=== PATIENT | female | born 1940 | race Caucasian/White ===

== ENCOUNTER 2018-03-22 09:20 | Inpatient (IN) | payer MEDICARE, OTHER ==
[~2018-03-22] VITALS: Ht 160 cm; Wt 80.3 kg
[~2018-03-22 09:20] MED LIST: ADULT LOW DOSE81 MG PO; ALENDRONATE SOD70 MG PO; AMBIEN 5 MG TABL5 M1 PO; AMITRIPTYLINE H10 M1 PO; AMITRIPTYLINE H25 M4 PO; APAP500 PO; ARICEPT10 MG PO; B-121000 MC2 PO; BISACODYL SUPP10 MG RECTAL; BUDEPRION SR150 MG PO; BUTALB-ACETAMI1 EAC2 PO; BUTALB-APAP-CA1 EACH PO; CALCARB 600 W-1 EACH PO; CALCIUM 500 +1 EAC5 PO; CALCIUM 600 +1 EAC1 PO; CARDURA4 MG PO; CIPRO500 MG PO; CLARITIN10 MG PO; CLONAZEPAM 0.50.5 M1 PO; CLONAZEPAM PO; DIOVAN 80 MG TA80 M1 PO; DIOVAN HCT 1601 EACH PO; ENDOCET 7.5-321 EACH PO; EXELON PO; EXELON1.5 MG PO; FLEXERIL PO; FLOMAX0.4 MG PO; FLONASE 0.05%50 MCG NASAL; FLONASE 0.05%50 MCG NS; FOSAMAX 70 MG T70 MG PO; FREEZE IT RE113.4 GM TP; FUROSEMIDE; HYDROCODON-ACE1 EAC5 PO; HYDROCODON-ACE1 EAC7 PO; LASIX 20 MG TAB20 MG PO; LASIX 40 MG TAB40 M2 PO; LEVOTHYROXIN0.025 MG PO; LIORESAL 10 MG10 MG PO; LOPERAMIDE 2 MG2 M1 PO; METHADONE HCL 110 M1 PO; MIRAPEX1.5 MG PO; NAMENDA 10 MG T10 MG PO; NAMENDA XR28 MG PO; NEURONTIN 300300 M1 PO; NEURONTIN 300M300 M1 PO; NEURONTIN 300M300 M2 PO; NEURONTIN600 MG PO; NORCO 10-325 T1 EACH PO; NORTRIPTYLINE H25 M3 GT; NORTRIPTYLINE H25 M3 PO; NORTRIPTYLINE H50 M3 GT; OCUVITE EYE +1 EACH PO; OCUVITE TABLET1 EAC1 PO; PAROXETINE HCL20 MG PO; PRILOSEC20 MG PO; PRIMIDONE50 MG PO; PROTONIX40 M1 PO; PULMICORT0.5 MG/22 INH; ROZEREM 8 MG TAB8 M1 PO; SINEMET 25-1001 EAC1 PO; SINEMET CR 25-1 EACH PO; STALEVO 150 TA1 EACH PO; STALEVO 200 TA1 EACH PO; TEGRETOL XR100 MG PO; TEGRETOL XR200 MG PO; TEGRETOL XR400 MG PO; TRAMADOL 50 MG50 MG PO; VESICARE 5 MG TA5 M1 PO; VESICARE 5 MG TA5 MG PO; VIACTIV SOFT C1 EACH PO; VITAMIN B-12500 MCG PO; WELLBUTRIN 75 M75 M1 PO; WELLBUTRIN SR150 M1 PO; [UNRECOGNIZED DRUG - OTHER] PO
[2018-03-22 09:29] VITALS: BP 152/77
[2018-03-22] MEDS ORDERED: OCUVITE ADULT1 EAC1 PO (09:44)
[2018-03-22] MEDS ORDERED: ARTIFICIAL TEA1 EACH OPHTHALMIC (09:45)
[2018-03-22] MEDS ORDERED: CLONIDINE0.1 PO (09:45)
[2018-03-22] MEDS ORDERED: RYTARY ER 48.71 EACH PO ×5 (09:45→15:26)
[2018-03-22] MEDS ORDERED: SENNA8.6 MG PO (09:45)
[2018-03-22] MEDS ORDERED: ASPERCREME1 EACH TOP (09:46)
[2018-03-22] MEDS ORDERED: FLECTOR PATCH1 EA TOP (09:46)
[2018-03-22 10:14] LABS: HEMATOCRIT 38.2 % (37.0-47.0); HEMOGLOBIN 13.3 gm/dL (12.0-15.0); MCH 32.4 pg (26.0-34.0); MCHC 34.7 g/dL (28.0-37.0); MCV 93.5 fL (80.0-100.0); MPV 8.1 fl. (7.2-11.1); NUCLEATED RBCS 0 /100WBC; PLATELET COUNT* 212 thou/uL (150-400); RBC 4.08 mil/uL (4.20-5.00); RDW-CV 13.5 % (10.5-14.5); WBC 10.6 thou/uL (4.0-11.0)
[2018-03-22 10:21] LABS: CALCIUM 8.3 mg/dL (8.5-10.1); CREATININE 0.7 mg/dL (0.6-1.3); POTASSIUM 3.7 mmol/L (3.5-5.1)
[2018-03-22 10:26] LABS: ALBUMIN 3.5 g/dL (3.4-5.0); TOTAL BILIRUBIN 0.6 mg/dL (<0.1-1.0)
[2018-03-22 10:34] LABS: ABSOLUTE EOSINOPHILS 0.1 thou/uL (0.0-0.7); ABSOLUTE MONOCYTES 0.1 thou/uL (0.0-1.2); ABSOLUTE NEUTROPHILS 5.4 thou/uL (1.6-8.1); PLATELET ESTIMATE ADEQUATE
[2018-03-22 11:32] LABS: URINE BILIRUBIN NEGATIVE (Negative); URINE BLOOD NEGATIVE (Negative); URINE CLARITY CLEAR; URINE COLOR YELLOW; URINE GLUCOSE-RANDOM NEGATIVE (Negative); URINE KETONES TRACE (Negative); URINE LEUKOCYTES-REFLEX NEGATIVE (Negative); URINE NITRITE-REFLEX NEGATIVE (Negative); URINE PROTEIN NEGATIVE (Negative); URINE SPECIFIC GRAVITY <= 1.005 (1.005-1.030); URINE UROBILINOGEN 0.2 E.U./dl (0.2-1.0)
[2018-03-22 11:45] VITALS: BP 168/85
[2018-03-22 11:55] VITALS: BP 166/78
--- NOTE | 2018-03-22 14:02 | EKG ---
[place] [address] ELECTROCARDIOGRAM REPORT Name: ADOLFO DICKINSON Room: [address] ADM IN .R.#: [id number] Admission: 03/22/18 Attend Phys: Denae Lopez MD Discharge: Date of : 44 Report #: [id number] THIS REPORT FOR: //name// [facility] ED Test Date: 2018-03-22 Test Time: 10:10:20 Pat Name: ADOLFO DICKINSON Department: Room: [facility] Gender: F [employer] Team Member: Emili ALCOCER : 1940 Requested By: Elsy Britton Order Number: [id number] MD: Greyson Tena Measurements Intervals [place] Rate: 63 P: -6 TX: 188 QRS: -15 QRSD: 107 T: 8 QT: 469 QTc: 481 Interpretive Statements Sinus rhythm Abnormal R-wave progression, early transition Probable left ventricular hypertrophy Compared to ECG 11/13/2016 12:39:48 Sinus arrhythmia no longer present Atrial abnormality no longer present Electronically Signed On 03-22-2018 14:02:01 CDT by Greyson Tena [email or web address] <ELECTRONICALLY SIGNED> By: Greyson Tena MD, FACC 03/22/18 1402 1010 1010 Greyson Tena MD, [facility] /EPI
[2018-03-22] MEDS ORDERED: TYLENOL325 MG PO (15:13)
[2018-03-22] MEDS ORDERED: MIRALAX17 GM PO (15:20)
[2018-03-22] MEDS ORDERED: NEURONTIN 300300 M1 PO (15:23)
[2018-03-22] MEDS ORDERED: TYLENOL EXTRA500 MG PO (15:26)
[2018-03-22] MEDS ORDERED: MYLANTA PO (15:29)
[2018-03-22] MEDS ORDERED: NORCO 10-325 T1 EACH PO (15:29)
[2018-03-22] MEDS ORDERED: PERCOCET 5-3251 EACH PO (15:30)
[2018-03-22] MEDS ORDERED: DESMOPRESSIN A0.2 M2 PO (15:30)
[2018-03-22 16:12] VITALS: BP 167/94
[2018-03-22 16:17] LABS: CALCIUM 8.6 mg/dL (8.5-10.1); CREATININE 0.8 mg/dL (0.6-1.3); POTASSIUM 3.5 mmol/L (3.5-5.1)
--- NOTE | 2018-03-22 16:29 | NUR ---
PATIENT ADMITTED TO ROOM 305 FROM ER. SON AT BEDSIDE AND VERY SUPPORTIVE TO PATIENT NEEDS. ALERT AND ORIENTED X 4. TREMORS NOTED. IVF INFUSING AT TIME OF ADMISSION. DR. ABARCA NOTIFIED OF UPDATE HOME MED LIST, DNR STATUS (ORDER OBTAINED), AND CT RESULTS. AWAITING ANY NEW ORDERS. PATIENT TURNED Q2. HEELS ELEVATED. BMP DRAWN THIS EVENING, ORDERS WERE TO PRIOR DC NS. DR. ABARCA NOTIFIED THAT NEW NA LEVEL WAS 121, NO NEW ORDERS RECEIVED AT THIS TIME. FALL RISK PROTOCOL IN PLACE. ORIENTED TO CALL LIGHT. CALL LIGHT WITHIN REACH, WILL CONTINUE TO MONITOR.
[2018-03-22 19:45] VITALS: BP 174/80
[2018-03-22 20:40] LABS: CALCIUM 8.5 mg/dL (8.5-10.1); CREATININE 0.8 mg/dL (0.6-1.3); POTASSIUM 3.5 mmol/L (3.5-5.1)
[2018-03-23] VITALS: BP 100/78
[2018-03-23 04:00] VITALS: BP 154/67
[2018-03-23 04:49] LABS: HEMATOCRIT 42.6 % (37.0-47.0); HEMOGLOBIN 14.1 gm/dL (12.0-15.0); MCH 31.6 pg (26.0-34.0); MCHC 33.1 g/dL (28.0-37.0); MCV 95.5 fL (80.0-100.0); MPV 8.6 fl. (7.2-11.1); RBC 4.46 mil/uL (4.20-5.00); RDW-CV 13.7 % (10.5-14.5); WBC 12.8 thou/uL (4.0-11.0)
[2018-03-23 05:32] LABS: ALBUMIN 3.7 g/dL (3.4-5.0); CALCIUM 8.5 mg/dL (8.5-10.1); CREATININE 0.8 mg/dL (0.6-1.3); POTASSIUM 3.9 mmol/L (3.5-5.1); TOTAL BILIRUBIN 0.5 mg/dL (<0.1-1.0); TOTAL PROTEIN 6.1 g/dL (6.4-8.2)
--- NOTE | 2018-03-23 06:39 | NUR ---
PT SLEPT OFF AND ON OVERNIGHT. VERY LONE [place] WITHOUT HEARING AID AND COCHLEAR IMPLANT ON. USING NOTEPAD TO COMMUNICATE AT TIMES. PT TURNED AND REPOSITIONED Q2 HOURS AND PRN FOR SKIN CARE AND COMFORT PT WOULD ALLOW. RLEG ELEVATED ON PILLOW. NEW IV LWRIST IVF INFUSING PER PUMP. USING BEDPAN OVERNIGHT TO VOID SEVERAL TIMES. CO R LEG PAIN, HYDROCODONE GIVEN PRN. SCDS ON. AM LABS DRAWN. DNR. ABLE TO USE CALL LITE AND MAKE NEEDS KNOWN. TREMORS DUE TO PARKINSONS. TELE SR. AO X4, FORGETFUL. BED ALARM ON FOR SAFETY.
[2018-03-23 08:00] VITALS: BP 138/59
[2018-03-23 12:21] VITALS: BP 89/58
--- NOTE | 2018-03-23 14:16 | NUR ---
SW met with pt son to complete initial assessment, introduce self, and SW role. (Pt was on the commode at the time.) Pt lives at [facility] and has a U Step walker and a wc. Pt has HH through the facility 3 times a week and also uses the stationary bike for exercising. Pt has hx of [place] at [facility]. Pt son does not anticipate any dc needs at this time. SW to continue to follow.
[2018-03-23 15:45] VITALS: BP 111/52
--- NOTE | 2018-03-23 18:33 | NUR ---
XRAY RIGHT HIP, NO FX NOTED. STEVE MEDS AND CARES WELL, COMPLIANT W/ PLAN OF CARE, SON AT BEDSIDE MOST OF THIS SHIFT, TURNED FREQUENTLY, UP TO CHAIR FOR MEALS, BSC FOR BOWEL/BLADDER, NS D/C'D, WELLBUTRIN D/C'D, VOICES NEEDS APPROP, CONT POC.
[2018-03-23 19:30] VITALS: BP 119/74
[2018-03-23 19:44] LABS: CALCIUM 8.3 mg/dL (8.5-10.1); CREATININE 0.8 mg/dL (0.6-1.3); POTASSIUM 4.5 mmol/L (3.5-5.1)
[2018-03-24 00:40] VITALS: BP 124/61
[2018-03-24 04:00] VITALS: BP 122/60
[2018-03-24 05:01] LABS: HEMOGLOBIN 13.5 gm/dL (12.0-15.0); MCH 31.7 pg (26.0-34.0); MCHC 32.9 g/dL (28.0-37.0); MCV 96.2 fL (80.0-100.0); MPV 8.7 fl. (7.2-11.1); RBC 4.26 mil/uL (4.20-5.00); WBC 12.1 thou/uL (4.0-11.0)
[2018-03-24 06:01] LABS: ALBUMIN 3.5 g/dL (3.4-5.0); CALCIUM 8.6 mg/dL (8.5-10.1); CREATININE 0.8 mg/dL (0.6-1.3); MAGNESIUM 2.3 mg/dL (1.8-2.4); TOTAL BILIRUBIN 0.3 mg/dL (<0.1-1.0); TOTAL PROTEIN 5.9 g/dL (6.4-8.2)
--- NOTE | 2018-03-24 07:01 | NUR ---
VITALS WNL. SEE MAR. SEE CHARTING. FALL PRECAUTIONS IN PLACE. HOURLY ROUNDING FOR SAFETY.
[2018-03-24 09:00] VITALS: BP 94/55
--- NOTE | 2018-03-24 11:16 | NUR ---
ASSUMED PT CARE AT 0700 PT IS ALERT AND ORIENTED X 4 PT DENIES PAIN OR SOA ON RA PT HAS TREMORS D/T CHRONIC ILLNESS, PT IS UP WITH ASSIST X 1 PT IS A FALL RISK CHAIR ALARM IS ON, PT IS SR ON THE MONITOR, PT IS HARD OF HEARING HAS HEARING AIDS CHOCLEAR IMPLANT AND CAN READ LIPS, WILL CONTINUE TO MONITOR
[2018-03-24 15:58] VITALS: BP 114/44
[2018-03-24 22:00] VITALS: BP 127/71
[2018-03-25 00:40] VITALS: BP 153/71
[2018-03-25 04:56] LABS: HEMATOCRIT 40.4 % (37.0-47.0); HEMOGLOBIN 13.4 gm/dL (12.0-15.0); MCH 31.8 pg (26.0-34.0); MCHC 33.2 g/dL (28.0-37.0); MCV 95.8 fL (80.0-100.0); MPV 8.8 fl. (7.2-11.1); RBC 4.21 mil/uL (4.20-5.00); RDW-CV 14.1 % (10.5-14.5); WBC 13.3 thou/uL (4.0-11.0)
--- NOTE | 2018-03-25 04:58 | NUR ---
PATIENT ALERT AND ORIENTED X4. HARD OF HEARING. UP WITH STAND BY ASSIST. PAIN MEDICATION GIVEN X2 AND HELPFUL FOR RIGHT LEG PAIN. NO C/O N/V. HAS SHAKES FROM PARKINSONS WHILE AWAKE. MEDICATION GIVEN AND HELPFUL FOR PAIN. CALL LIGHT WITHIN REACH. BED ALARM ON.
[2018-03-25 05:31] LABS: ALBUMIN 3.3 g/dL (3.4-5.0); CALCIUM 8.3 mg/dL (8.5-10.1); CREATININE 0.8 mg/dL (0.6-1.3); MAGNESIUM 2.3 mg/dL (1.8-2.4); POTASSIUM 4.2 mmol/L (3.5-5.1); TOTAL BILIRUBIN 0.3 mg/dL (<0.1-1.0); TOTAL PROTEIN 5.9 g/dL (6.4-8.2)
--- NOTE | 2018-03-25 06:22 | NUR ---
REMAINS IN SINUS RHYTHM ON HEART MONITOR.
--- NOTE | 2018-03-25 07:40 | NUR ---
ASSUMED CARE OF PT, REPORT OBTAINED FROM GIRMA BEDLOLA. PT RESTING IN BED AT THIS TIME
[2018-03-25 09:30] VITALS: BP 153/71
[2018-03-25 16:16] VITALS: BP 133/61
--- NOTE | 2018-03-25 18:53 | NUR ---
PT VSS THIS SHIFT AND SR ON THE MONITOR. PT AOX4, LUNGS CTA-PT PUT ON 2LNC DUE TO SATS IN LOW 90'S FOR COMFORT. PT TOLERATING DIET, BUT HAS REDUCED APPETITE. PT ABLE TO GET UP TO COMMODE OR THE BATHROOM WITH ASSISTANCE OF 1 WITH GAIT BELT AND WALKER. PT HAS C/O PAIN THIS SHIFT IN RLE. DR RAWLS PLACED REHAB CONSULT ORDER. WILL CONTINUE TO MONITOR AND ASSESS
[2018-03-26] VITALS: BP 138/60
[2018-03-26 05:02] LABS: HEMATOCRIT 38.7 % (37.0-47.0); HEMOGLOBIN 12.9 gm/dL (12.0-15.0); MCH 32.3 pg (26.0-34.0); MCHC 33.4 g/dL (28.0-37.0); MCV 96.7 fL (80.0-100.0); MPV 8.7 fl. (7.2-11.1); RDW-CV 14.3 % (10.5-14.5); WBC 10.8 thou/uL (4.0-11.0)
[2018-03-26 05:12] LABS: CALCIUM 8.7 mg/dL (8.5-10.1); CREATININE 0.8 mg/dL (0.6-1.3); MAGNESIUM 2.2 mg/dL (1.8-2.4); POTASSIUM 3.8 mmol/L (3.5-5.1)
--- NOTE | 2018-03-26 06:12 | NUR ---
PATIENT SLEPT MOST OF THE NIGHT. IV REMAINS SALINE LOCKED. PATIENT WAS GIVEN PAIN MEDICINE ONCE THIS SHIFT. PATIENT IS POSSIBLE GOING TO REHAB TODAY. WILL CONTINUE TO MONITOR.
[2018-03-26 08:00] VITALS: BP 144/63
--- NOTE | 2018-03-26 11:30 | NUR ---
Possibility for pt to dc to [facility] in rehab unit today.
[2018-03-26 12:00] VITALS: BP 118/50; BP 120/68
--- NOTE | 2018-03-26 17:24 | NUR ---
RECEIVED CONSULT FOR POSSIBLE REHAB ADMISSION. CONSULT HAS BEEN ACKNOWLEDGED BY ROUGH RIB GRADER AND DR. KING. PATIENT ADMITTED WITH HYPONATREMIA AND EXACERBATION OF HER PARKINSONS. PATIENT EVALUATED BY PT/OT HAS DEFINATE REHAB NEEDS. SPOKE WITH PATIENT WHO IS AGREEABLE TO REHAB AND VOICES UNDERSTANDING OF QUALIFICATIONS AND EXPECTATIONS. SPOKE WITH CM, HUGH AND INFORMED OF ACCEPTANCE TO REHAB ONCE MEDICALLY STABLE, PATIENT SHOULD BE READY FOR DISCHARGE TO REHAB TOMORROW. THANK YOU FOR THIS CONSULT.
--- NOTE | 2018-03-26 19:42 | NUR ---
RESUMED CARE THIS AM, SEE ASSESSMENT FOR DETAILS, VSS, COMPLIANT W/ MEDS/CARES. UP W/ EXT ASSIST OF ONE, CONTINENT OF B/B. LABS RESOLVING, ORDERS RECEIVED FOR OT CONSULT, ANTICIPATE TRANSFER TO IN REHAB TOMORROW. FAMILY @ BEDSIDE MOST OF THIS SHIFT, PLAN OF CARE REVIEWED, NO QUESTIONS AT THIS TIME, CONT POC.
[2018-03-27] VITALS: BP 168/78
[2018-03-27 04:00] VITALS: BP 193/94
--- NOTE | 2018-03-27 06:04 | NUR ---
PT SLEPT OFF AND ON OVERNIGHT, UP WITH ASSIST TO BSC TO VOID. AOX4, [place]. NO LABS THIS MORNING.LWRIST SLIV. DNR. TAKES PILLS WHOLE WITH WATER. ANTICIPATING DISCHARGE TO REHAB TODAY. ABLE TO USE CALL LITE AND MAKE NEEDS KNOWN.
[2018-03-27 08:00] VITALS: BP 150/68
--- NOTE | 2018-03-27 10:05 | NUR ---
Pt to dc to inpt rehab today just pending final orders. SW called and spoke with pt son Jesus who is in agreement with plan and happy that pt will be able to go to inpt rehab here in the hospital. No other dc needs expressed at this time.
--- NOTE | 2018-03-27 11:17 | NUR ---
RESUMED CARE THIS AM, VSS, NO DISTRESS NOTED, DISCOMFORT TO R HIP 2/2 OA CONTROLLED WITH ORAL MEDICATION. ORDERS RECEIVED FOR TRANSFER TO IN REHAB, ROOM 326, FAMILY AND PATIENT INFORMED, IV ACCESS REMOVED W/O INCIDENT. PERSONAL EFFECTS GATHERED, ACCOUNTED FOR, IN COMPANY.
[2018-03-27 12:00] VITALS: BP 110/60
[2018-03-27] MEDS ORDERED: MIRAPEX1.5 MG PO (13:43)
[2018-03-27 13:53] VITALS: BP 110/60
== END 2018-03-27 14:58 | DRG 644 ==
LOC: M.ERS 09:20 → M.TBA-ER 10:45 → M.3W 10:45
PROVIDERS: Family Medicine; Personal Emergency Response Attendant; Psychiatry & Neurology Neurology; ADMIT Family Medicine
DX: E22.2 Syndrome of inappropriate secretion of antidiuretic hormone (principal); K57.92 Diverticulitis of intestine, part unspecified, without perforation or abscess without bleeding; T43.295A Adverse effect of other antidepressants, initial encounter; H91.93 Unspecified hearing loss, bilateral; G20 Parkinson's disease; I10 Essential (primary) hypertension; F32.9 Major depressive disorder, single episode, unspecified; K59.00 Constipation, unspecified; R39.15 Urgency of urination; F02.80 Dementia in other diseases classified elsewhere, unspecified severity, without behavioral disturbance, psychotic disturbance, mood disturbance, and anxiety; F41.9 Anxiety disorder, unspecified; Z87.81 Personal history of (healed) traumatic fracture; Z90.49 Acquired absence of other specified parts of digestive tract; Z90.710 Acquired absence of both cervix and uterus; Z79.82 Long term (current) use of aspirin; Z79.899 Other long term (current) drug therapy; Z88.2 Allergy status to sulfonamides; Z23 Encounter for immunization

== ENCOUNTER 2018-03-27 10:46 | Inpatient (IN) | payer MEDICARE, OTHER ==
[~2018-03-27] VITALS: Ht 160 cm; Wt 79.3 kg
--- NOTE | ~2018-03-27 | PLAN ---
[facility] [address] [place] [address] REHAB UNIT PLAN OF CARE Name: ADOLFO DICKINSON Room: [address] IN [facility].#: [id number] Admission: 03/27/18 Attend Phys: Emiliana Julien DO Discharge: Date of : 44 Report #: [id number] THIS REPORT FOR: //name// CC: Emiliana Julien Walt Rubi This is a 77-year-old female admitted to inpatient rehabilitation to facilitate safe discharge home, status post acute hospitalization at [facility] for increasing weakness, debility, alterations in activities of daily living. She does have known Parkinson's disease and did have an exacerbation of her symptoms during her hospital stay. She is requiring physical and occupational therapy, as well as speech and language pathology for [id number] cognitive deficits. Her previous level of function was modified independent with a cane and/or front-wheeled walker. Current level of function is [id number] assistance of 1-2 depending on therapy, activity, and time of day. She does have cognitive deficits with expression, cognition, and memory. Estimated length of stay is 12-14 days with discharge disposition to the home setting where she has accessible house and supportive family. MEDICAL PROGNOSIS: Good. REHABILITATION PROGNOSIS: Good. Physical therapy will see the patient 60-90 minutes per day, 5 days per week, working on upper and lower body strength, balance, coordination, navigation. Occupational therapy will work with the patient 60-90 minutes per day, 5 days per week, working on upper and lower body strength, balance, coordination, navigation, bathing, dressing, and toileting. Speech language pathology will work with the patient 30-90 minutes per day, 5 days per week, working on memory strategies, cognition, expression. This is an overall plan of care, may change from time to time, will team him weekly and make changes to plan of care as needed. By: [id number] Julien DO /felisa
[~2018-03-27 10:46] MED LIST changes: +ARTIFICIAL TEA1 EACH OPHTHALMIC; +ASPERCREME1 EACH TOP; +CLONIDINE0.1 PO; +DESMOPRESSIN A0.2 M2 PO; +FLECTOR PATCH1 EA TOP; +MIRALAX17 GM PO; +MYLANTA PO; +OCUVITE ADULT1 EAC1 PO; +PERCOCET 5-3251 EACH PO; +RYTARY ER 48.71 EACH PO; +SENNA8.6 MG PO; +TYLENOL EXTRA500 MG PO; +TYLENOL325 MG PO
[2018-03-27] MEDS ORDERED: MIRAPEX1.5 MG PO (13:43)
[2018-03-27 15:00] VITALS: BP 131/68
[2018-03-27 20:43] VITALS: BP 131/56
[2018-03-28 05:06] LABS: HEMATOCRIT 38.3 % (37.0-47.0); HEMOGLOBIN 12.8 gm/dL (12.0-15.0); MCH 32.5 pg (26.0-34.0); MCHC 33.4 g/dL (28.0-37.0); MCV 97.2 fL (80.0-100.0); MPV 8.3 fl. (7.2-11.1); RBC 3.94 mil/uL (4.20-5.00); RDW-CV 14.4 % (10.5-14.5); WBC 9.5 thou/uL (4.0-11.0)
[2018-03-28 05:24] LABS: CALCIUM 8.9 mg/dL (8.5-10.1); CREATININE 0.8 mg/dL (0.6-1.3); POTASSIUM 4.4 mmol/L (3.5-5.1)
[2018-03-28 08:00] VITALS: BP 195/80
[2018-03-28 20:14] VITALS: BP 114/61
[2018-03-29 08:19] VITALS: BP 161/87
[2018-03-29 20:40] VITALS: BP 124/42
[2018-03-30 07:50] VITALS: BP 151/69
[2018-03-30 20:01] VITALS: BP 110/51
[2018-03-31 08:00] VITALS: BP 141/56
[2018-03-31 19:21] VITALS: BP 127/57
[2018-04-01 07:57] VITALS: BP 139/85
[2018-04-01 20:00] VITALS: BP 130/65
[2018-04-02 08:29] VITALS: BP 148/55
[2018-04-02 19:51] VITALS: BP 134/67
[2018-04-03 03:53] LABS: HEMATOCRIT 37.9 % (37.0-47.0); HEMOGLOBIN 12.3 gm/dL (12.0-15.0); MCH 31.8 pg (26.0-34.0); MCHC 32.5 g/dL (28.0-37.0); MCV 97.9 fL (80.0-100.0); MPV 7.6 fl. (7.2-11.1); RBC 3.87 mil/uL (4.20-5.00); RDW-CV 14.5 % (10.5-14.5); WBC 8.4 thou/uL (4.0-11.0)
[2018-04-03 04:11] LABS: CALCIUM 8.4 mg/dL (8.5-10.1); CREATININE 0.8 mg/dL (0.6-1.3); MAGNESIUM 2.2 mg/dL (1.8-2.4); POTASSIUM 3.6 mmol/L (3.5-5.1)
[2018-04-03 08:01] VITALS: BP 142/75
[2018-04-03 19:35] VITALS: BP 174/92
[2018-04-04 08:30] VITALS: BP 133/68
[2018-04-04 19:37] VITALS: BP 140/66
[2018-04-05 08:00] VITALS: BP 133/55
[2018-04-05 20:00] VITALS: BP 108/59
[2018-04-06 07:29] VITALS: BP 144/67
[2018-04-06 20:05] VITALS: BP 128/71
[2018-04-07 07:38] VITALS: BP 183/89
[2018-04-07 19:35] VITALS: BP 108/50
[2018-04-08 08:10] VITALS: BP 138/83
[2018-04-08 18:35] VITALS: BP 109/66
[2018-04-09 07:36] VITALS: BP 141/64
[2018-04-09 20:00] VITALS: BP 111/50
[2018-04-10 04:22] LABS: HEMATOCRIT 40.2 % (37.0-47.0); HEMOGLOBIN 13.2 gm/dL (12.0-15.0); MCV 97.2 fL (80.0-100.0); MPV 7.9 fl. (7.2-11.1); NUCLEATED RBCS 0 /100WBC; PLATELET COUNT* 309 thou/uL (150-400); RBC 4.14 mil/uL (4.20-5.00); RDW-CV 15.2 % (10.5-14.5)
[2018-04-10 04:38] LABS: CREATININE 0.9 mg/dL (0.6-1.3); POTASSIUM 4.1 mmol/L (3.5-5.1)
[2018-04-10 05:57] LABS: ABSOLUTE BASOPHILS 0.1 thou/uL (0.0-0.2); ABSOLUTE EOSINOPHILS 0.3 thou/uL (0.0-0.7); ABSOLUTE LYMPHOCYTES 7.6 thou/uL (0.8-5.3); ABSOLUTE MONOCYTES 0.1 thou/uL (0.0-1.2); ABSOLUTE NEUTROPHILS 1.9 thou/uL (1.6-8.1); ATYPICAL LYMPHS 4 %; PLATELET ESTIMATE ADEQUATE
[2018-04-10 08:05] VITALS: BP 129/78
[2018-04-10 11:08] LABS: HEMOGLOBIN 13.1 g/dL (11.1-15.9)
[2018-04-10 19:45] VITALS: BP 98/52
[2018-04-11 08:05] VITALS: BP 160/81
[2018-04-11 21:00] VITALS: BP 92/48
[2018-04-12 07:53] VITALS: BP 163/81
[2018-04-12 20:00] VITALS: BP 117/62
[2018-04-13 08:01] VITALS: BP 172/87
[2018-04-13 08:10] VITALS: BP 172/87
[2018-04-13 12:40] VITALS: BP 117/73
[2018-04-13 20:00] VITALS: BP 103/54
[2018-04-14 08:02] VITALS: BP 189/82
[2018-04-14 13:55] VITALS: BP 111/53
[2018-04-14 19:30] VITALS: BP 69/35
[2018-04-14 20:00] VITALS: BP 78/31
[2018-04-15 01:30] VITALS: BP 168/79
[2018-04-15 04:45] VITALS: BP 185/87
[2018-04-15 07:32] VITALS: BP 143/61
[2018-04-15 15:00] VITALS: BP 162/73
[2018-04-15 20:13] VITALS: BP 113/56
[2018-04-15 21:08] VITALS: BP 116/56
[2018-04-16 01:00] VITALS: BP 173/83
[2018-04-16 06:15] VITALS: BP 189/91
[2018-04-16 07:40] VITALS: BP 164/84
[2018-04-16 21:20] VITALS: BP 135/59
[2018-04-17 04:53] LABS: HEMATOCRIT 39.4 % (37.0-47.0); HEMOGLOBIN 13.1 gm/dL (12.0-15.0); MCH 32.5 pg (26.0-34.0); MCHC 33.3 g/dL (28.0-37.0); MCV 97.7 fL (80.0-100.0); MPV 8.1 fl. (7.2-11.1); RBC 4.03 mil/uL (4.20-5.00); RDW-CV 14.9 % (10.5-14.5); WBC 10.7 thou/uL (4.0-11.0)
[2018-04-17 04:59] LABS: CREATININE 0.9 mg/dL (0.6-1.3)
[2018-04-17 06:15] VITALS: BP 190/58
[2018-04-17 08:30] VITALS: BP 141/71
[2018-04-17 13:27] VITALS: BP 97/46
[2018-04-17 20:00] VITALS: BP 119/60
[2018-04-18 05:50] VITALS: BP 200/81
[2018-04-18 08:06] VITALS: BP 155/66
[2018-04-18 14:57] VITALS: BP 155/66
[2018-04-18 15:22] VITALS: BP 155/66
[2018-04-18] MEDS ORDERED: REMERON15 MG PO (15:37)
== END 2018-04-18 16:32 | disposition home health service (06) | DRG 57 ==
LOC: M.REH 10:46
PROVIDERS: Family Medicine; Internal Medicine; ADMIT Physical Medicine & Rehabilitation
DX: G20 Parkinson's disease (principal); R53.1 Weakness; E87.8 Other disorders of electrolyte and fluid balance, not elsewhere classified; H91.93 Unspecified hearing loss, bilateral; M16.11 Unilateral primary osteoarthritis, right hip; G50.0 Trigeminal neuralgia; R53.81 Other malaise; M79.10 Myalgia, unspecified site; K59.09 Other constipation; Z96.21 Cochlear implant status; I10 Essential (primary) hypertension; F41.9 Anxiety disorder, unspecified; F32.9 Major depressive disorder, single episode, unspecified; Z90.710 Acquired absence of both cervix and uterus; Z87.81 Personal history of (healed) traumatic fracture; Z79.82 Long term (current) use of aspirin; Z79.899 Other long term (current) drug therapy; Z88.2 Allergy status to sulfonamides

== ENCOUNTER 2018-12-21 12:29 | Emergency (ER) | payer MEDICARE, OTHER ==
[~2018-12-21] VITALS: Ht 162.6 cm; Wt 65.3 kg
[~2018-12-21 12:29] MED LIST changes: +REMERON15 MG PO
[2018-12-21 16:03] VITALS: BP 170/92
== END 2018-12-21 16:03 | disposition home or self-care (01) ==
LOC: M.ERS 12:29
DX: S70.02XA Contusion of left hip, initial encounter (principal); S70.12XA Contusion of left thigh, initial encounter; I10 Essential (primary) hypertension; F32.9 Major depressive disorder, single episode, unspecified; F41.9 Anxiety disorder, unspecified; Z88.2 Allergy status to sulfonamides; W18.39XA Other fall on same level, initial encounter; Y93.89 Activity, other specified; Y92.89 Other specified places as the place of occurrence of the external cause; Y99.8 Other external cause status